=== PATIENT | male | born 1960 | race Caucasian/White ===

== ENCOUNTER 2018-05-16 20:35 | Emergency (ER) | payer SELFPAY ==
[~2018-05-16] VITALS: Ht 172.7 cm; Wt 71.0 kg
[2018-05-16] MEDS ORDERED: DIPHENHYDRAMINE 25MG CAPSULE PO ONE (23:30)
[2018-05-16] MEDS ORDERED: DIPHENHYDRAMINE 25MG CAPSULE PO NR (23:45)
[2018-05-17 00:03] LABS: BASOPHILS % 0.4 % (0.0-2.0); HEMATOCRIT. 39.9 % (42.0-52.0); HEMOGLOBIN. 13.6 g/dL (14.0-18.0); LYMPHOCYTES % 15.1 % (20.0-50.0); MEAN CORPUSCULAR HEMOGLOBIN 30.2 pg (28.0-32.0); MEAN CORPUSCULAR VOLUME 88.3 fL (80.0-94.0); MEAN PLATELET VOLUME 8.9 fl (7.4-10.4); MONOCYTES % 6.3 % (2.0-8.0); NEUTROPHILS % 75.2 % (40.0-76.0); PLATELET 226 x1000/uL (130-400); RED BLOOD CELL COUNT 4.52 mill/uL (4.7-6.1); RED CELL DISTRIBUTION WIDTH 13.5 % (11.6-14.6)
[2018-05-17 00:05] LABS: CHLORIDE 104 mEq/L (98-107)
[2018-05-17 01:58] VITALS: BP 138/82
== END 2018-05-17 02:03 | disposition home or self-care (01) ==
LOC: ER 21:47
DX: R21 Rash and other nonspecific skin eruption (principal); M79.81 Nontraumatic hematoma of soft tissue; I11.9 Hypertensive heart disease without heart failure; F17.210 Nicotine dependence, cigarettes, uncomplicated
CPT/HCPCS: 36415; 73590; 73610; 80053; 85025; 99285; Q0163

== ENCOUNTER 2019-10-31 18:18 | Inpatient (IN) | payer BC ==
[~2019-10-31] VITALS: Ht 172.7 cm; Wt 76.2 kg
[2019-10-31 20:41] LABS: CHLORIDE 103 mEq/L (98-107)
[2019-10-31 20:45] LABS: BASOPHILS % 0.5 % (0.0-2.0); EOSINOPHILS % 4.8 % (0.0-5.0); HEMATOCRIT. 43.9 % (42.0-52.0); HEMOGLOBIN. 15.1 g/dL (14.0-18.0); LYMPHOCYTES % 19.6 % (20.0-50.0); MEAN CORPUSCULAR HEMOGLOBIN 30.8 pg (28.0-32.0); MEAN CORPUSCULAR VOLUME 89.4 fL (80.0-94.0); MEAN PLATELET VOLUME 9.5 fl (7.4-10.4); MONOCYTES % 8.8 % (2.0-8.0); NEUTROPHILS % 66.3 % (40.0-76.0); PLATELET 178 x1000/uL (130-400); RED BLOOD CELL COUNT 4.91 mill/uL (4.7-6.1); RED CELL DISTRIBUTION WIDTH 13.1 % (11.6-14.6)
[2019-11-01] MEDS ORDERED: HYDROCODONE/ACETAMINOPHEN 5/325MG TABLET PO PRN (00:15)
[2019-11-01] MEDS ORDERED: MORPHINE SULFATE 2 MG/ML CPJ (NOT FOR IM USE) IV PRN (00:15)
[2019-11-01] MEDS ORDERED: MAGNESIUM/ALUMINUM HYDROXIDE/SIMETHICONE 30ML UDC PO PRN (00:15)
[2019-11-01] MEDS ORDERED: CLONIDINE 0.1MG TABLET PO PRN (00:15)
[2019-11-01] MEDS ORDERED: ACETAMINOPHEN 325MG TABLET PO PRN (00:15)
[2019-11-01] MEDS ORDERED: ONDANSETRON HCL 4MG/2ML INJ IV PRN (00:15)
[2019-11-01 05:15] VITALS: BP 133/76
[2019-11-01 05:20] VITALS: BP 133/76
[2019-11-01 08:00] VITALS: BP 138/40
[2019-11-01] MEDS: AMLODIPINE 10MG TABLET PO SCH (08:37)
[2019-11-01] MEDS: ENOXAPARIN 40MG/0.4ML SYR SUBCUT SCH (08:39)
[2019-11-01] MEDS ORDERED: NITROGLYCERIN 0.4MG TABLET SL SL PRN (12:30)
[2019-11-01] MEDS: PANTOPRAZOLE SODIUM 40 MG/VIAL IV SCH (14:01)
[2019-11-01 17:32] LABS: *AMPHETAMINES SCREEN URINE NEGATIVE (NEGATIVE); *BARBITURATES SCREEN URINE NEGATIVE (NEGATIVE); *BENZODIAZEPINES SCREEN URINE NEGATIVE (NEGATIVE); *COCAINE SCREEN URINE NEGATIVE (NEGATIVE)
[2019-11-01 17:33] LABS: CANNABINOID URINE SCREEN NEGATIVE (NEGATIVE); OPIATES URINE SCREEN NEGATIVE (NEGATIVE); PHENCYCLIDINE URINE SCREEN NEGATIVE (NEGATIVE)
[2019-11-01 20:00] VITALS: BP 133/64
[2019-11-02] VITALS: BP 117/48
[2019-11-02 04:00] VITALS: BP 125/70
[2019-11-02 08:00] VITALS: BP 146/65
[2019-11-02 08:14] LABS: BASOPHILS % 1.2 % (0.0-2.0); EOSINOPHILS % 6.2 % (0.0-5.0); HEMATOCRIT. 44.9 % (42.0-52.0); HEMOGLOBIN. 15.3 g/dL (14.0-18.0); LYMPHOCYTES % 17.7 % (20.0-50.0); MEAN CORPUSCULAR HEMOGLOBIN 30.6 pg (28.0-32.0); MEAN CORPUSCULAR VOLUME 89.9 fL (80.0-94.0); MEAN PLATELET VOLUME 9.8 fl (7.4-10.4); MONOCYTES % 7.7 % (2.0-8.0); NEUTROPHILS % 67.2 % (40.0-76.0); PLATELET 184 x1000/uL (130-400); RED CELL DISTRIBUTION WIDTH 12.9 % (11.6-14.6)
[2019-11-02 08:18] LABS: CHLORIDE 107 mEq/L (98-107); GAMMA GLUTAMYL TRANSPEPTIDASE 106 IU/L (11-50); HDL CHOLESTEROL 36 mg/dL (40-59); LDL CHOLESTEROL 216 mg/dL (5-100); TOTAL IRON BINDING CAPACITY 367 ug/dL (250-450)
[2019-11-02 08:23] LABS: VITAMIN B12 SERUM 435 pg/mL (211-911)
[2019-11-02] MEDS ORDERED: EZ-HD SUSPENSION(BARIUM SULFATE 340GM) PO ONE (08:26)
[2019-11-02] MEDS ORDERED: SIMETHICONE/SOD BICARB/CIT AC 1 EACH GRAN.EF.PK ONE (08:27)
[2019-11-02] MEDS ORDERED: BARIUM SULFATE 176 GM SUSP.RECON ONE (08:27)
[2019-11-02] MEDS ORDERED: REGADENOSON 0.4 MG/5 ML IV NR (10:00)
[2019-11-02] MEDS: PANTOPRAZOLE SODIUM 40 MG/VIAL IV SCH (10:07)
[2019-11-02] MEDS: AMLODIPINE 10MG TABLET PO SCH (10:07)
[2019-11-02] MEDS: ENOXAPARIN 40MG/0.4ML SYR SUBCUT SCH (10:08)
[2019-11-02 12:00] VITALS: BP 146/80
[2019-11-02] MEDS ORDERED: REGADENOSON 0.4 MG/5 ML IV ONE (12:42)
[2019-11-02 13:29] LABS: HEPATITIS B SURFACE ANTIGEN NEGATIVE
[2019-11-02 13:58] LABS: HEPATITIS A AB IGM NEGATIVE (NEGATIVE)
[2019-11-02] MEDS ORDERED: ASPIRIN 81MG TABLET PO SCH (15:30)
[2019-11-02 16:00] VITALS: BP 130/73
[2019-11-02 16:07] LABS: METHADONE URINE SCREEN NEGATIVE (NEGATIVE)
[2019-11-02 20:00] VITALS: BP 136/76
[2019-11-03] VITALS (7 sets, daily range): BP systolic 121–177; BP diastolic 63–88
[2019-11-03 06:52] LABS: CHLORIDE 104 mEq/L (98-107)
[2019-11-03 06:55] LABS: BASOPHILS % 0.8 % (0.0-2.0); EOSINOPHILS % 6.5 % (0.0-5.0); HEMATOCRIT. 42.8 % (42.0-52.0); LYMPHOCYTES % 20.4 % (20.0-50.0); MEAN CORPUSCULAR HEMOGLOBIN 31.2 pg (28.0-32.0); MEAN CORPUSCULAR VOLUME 89.1 fL (80.0-94.0); MEAN PLATELET VOLUME 9.7 fl (7.4-10.4); MONOCYTES % 8.9 % (2.0-8.0); NEUTROPHILS % 63.4 % (40.0-76.0); PLATELET 187 x1000/uL (130-400); RED BLOOD CELL COUNT 4.81 mill/uL (4.7-6.1); RED CELL DISTRIBUTION WIDTH 12.7 % (11.6-14.6)
[2019-11-03] MEDS: PANTOPRAZOLE SODIUM 40 MG/VIAL IV SCH (08:39)
[2019-11-03] MEDS ORDERED: PHENYLEPHRINE 100MCG/ML 10ML VIAL (CATH LAB) IV ONE (11:13)
[2019-11-03] MEDS ORDERED: NICARDIPINE 100MCG/ML 10ML VIAL (CATH LAB) IV ONE (11:13)
[2019-11-03] MEDS ORDERED: NITROGLYCERIN 50MCG/ML 10ML VIAL (CATH LAB) IV ONE (11:13)
[2019-11-03] MEDS ORDERED: FENTANYL CITRATE/PF 50MCG/ML 2ML VIAL ONE (14:53)
[2019-11-03] MEDS ORDERED: LIDOCAINE HCL 1% 20ML VIAL (Pyxis) INJ ONE (14:53)
[2019-11-03] MEDS ORDERED: IODIXANOL 320MG/ML 100 ML BOTTLE IV ONE (14:53)
[2019-11-03] MEDS ORDERED: MIDAZOLAM HCL 2 MG/2 ML VIAL ONE (14:54)
[2019-11-03] MEDS ORDERED: ASPIRIN/SOD BICARB/CITRIC ACID 324MG TAB EFF ONE (14:56)
[2019-11-03] MEDS ORDERED: NITROGLYCERIN 0.4MG TABLET SL SL ONE (15:11)
[2019-11-03] MEDS ORDERED: NITROGLYCERIN OINT 1GM/INCH UDPKT TD ONE (15:13)
[2019-11-03] MEDS ORDERED: IOHEXOL-300 100 ML BOTTLE ONE (15:34)
[2019-11-03] MEDS ORDERED: IODIXANOL 320MG/ML 200ML BOTTLE ONE (15:52)
[2019-11-03] MEDS ORDERED: CLOPIDOGREL 75MG TABLET ONE (15:55)
[2019-11-03] MEDS ORDERED: ONDANSETRON HCL 4MG/2ML INJ IV PRN (16:15)
[2019-11-03] MEDS ORDERED: MORPHINE SULFATE 2 MG/ML CPJ (NOT FOR IM USE) IV PRN ×2 (16:15)
[2019-11-03] MEDS ORDERED: ATROPINE SULFATE 1MG/10ML SYR IV PRN (16:15)
[2019-11-03] MEDS ORDERED: CLOPIDOGREL 75MG TABLET PO ONE (16:15)
[2019-11-03] MEDS ORDERED: SODIUM CHLORIDE 0.45% 1,000 ML IV ONE (16:15)
[2019-11-03] MEDS ORDERED: ACETAMINOPHEN 325MG TABLET PO PRN (16:15)
[2019-11-03] MEDS: AMLODIPINE 2.5MG TABLET PO SCH (20:12)
[2019-11-03] MEDS ORDERED: ATORVASTATIN CALCIUM 40MG TABLET PO SCH (21:00)
[2019-11-04] VITALS (10 sets, daily range): BP systolic 108–147; BP diastolic 58–76
[2019-11-04 07:08] LABS: BASOPHILS % 1.1 % (0.0-2.0); EOSINOPHILS % 5.5 % (0.0-5.0); HEMATOCRIT. 41.3 % (42.0-52.0); HEMOGLOBIN. 14.4 g/dL (14.0-18.0); LYMPHOCYTES % 18.8 % (20.0-50.0); MEAN CORPUSCULAR HEMOGLOBIN 31.1 pg (28.0-32.0); MEAN CORPUSCULAR VOLUME 88.8 fL (80.0-94.0); MEAN PLATELET VOLUME 9.5 fl (7.4-10.4); MONOCYTES % 8.7 % (2.0-8.0); NEUTROPHILS % 65.9 % (40.0-76.0); PLATELET 187 x1000/uL (130-400); RED BLOOD CELL COUNT 4.65 mill/uL (4.7-6.1); RED CELL DISTRIBUTION WIDTH 12.9 % (11.6-14.6)
[2019-11-04 07:19] LABS: CHLORIDE 105 mEq/L (98-107)
[2019-11-04] MEDS ORDERED: ASPIRIN 325MG TABLET PO SCH (09:00)
[2019-11-04] MEDS ORDERED: CLOPIDOGREL 75MG TABLET PO SCH (09:00)
[2019-11-04] MEDS: ENOXAPARIN 40MG/0.4ML SYR SUBCUT SCH ×2 (09:00→10:48)
[2019-11-04] MEDS ORDERED: FAMOTIDINE 20MG/2ML VIAL IV SCH (09:00)
[2019-11-04] MEDS: AMLODIPINE 2.5MG TABLET PO SCH (10:49)
== END 2019-11-04 17:35 | disposition home or self-care (01) | DRG 247 ==
LOC: ER 18:18 → 7WST 22:44 → EDBEDREQ 22:52 → EDBEDREQTM 22:52 → ENRESERV 11-01 03:48 → 3WST 11-03 16:36
PROVIDERS: ADMIT Hospitalist; ATTEND Hospitalist
PROC: 4A023N7 Measurement of Cardiac Sampling and Pressure, Left Heart, Percutaneous Approach (ICD-10-PCS; principal; 2019-11-02)
PROC: 027034Z Dilation of Coronary Artery, One Artery with Drug-eluting Intraluminal Device, Percutaneous Approach (ICD-10-PCS; 2019-11-02)
PROC: B2151ZZ Fluoroscopy of Left Heart using Low Osmolar Contrast (ICD-10-PCS; 2019-11-02)
PROC: B2111ZZ Fluoroscopy of Multiple Coronary Arteries using Low Osmolar Contrast (ICD-10-PCS; 2019-11-02)
DX: I21.19 ST elevation (STEMI) myocardial infarction involving other coronary artery of inferior wall (principal); I25.10 Atherosclerotic heart disease of native coronary artery without angina pectoris; F10.10 Alcohol abuse, uncomplicated; F17.210 Nicotine dependence, cigarettes, uncomplicated; I10 Essential (primary) hypertension; R13.10 Dysphagia, unspecified; D64.9 Anemia, unspecified; I35.0 Nonrheumatic aortic (valve) stenosis; R00.1 Bradycardia, unspecified; R74.0 Nonspecific elevation of levels of transaminase and lactic acid dehydrogenase [LDH]; K76.0 Fatty (change of) liver, not elsewhere classified; E87.6 Hypokalemia; E78.5 Hyperlipidemia, unspecified; Z87.19 Personal history of other diseases of the digestive system; Z79.02 Long term (current) use of antithrombotics/antiplatelets
CPT/HCPCS: 36415; 71045; 74220; 76700; 78452; 80048; 80053; 80061; 80076; 80305; 82248; 82607; 82977; 83540; 83550; 83735; 83880; 84443; 84484; 85025; 85347; 86705; 86709; 86803; 87340; 92610; 92928; 93005; 93017; 93306; 93458; 93970; 99285; A9500; C1725; C1769; C1874; C1887; C1893; C9113; J1644; J1650; J2250; J2370; J2785; J3010; J3490; J7517; Q9967

== ENCOUNTER 2019-12-23 13:09 | Emergency (ER) | payer BC ==
[~2019-12-23] VITALS: Ht 172.7 cm; Wt 76.0 kg
[2019-12-23 16:11] LABS: CHLORIDE 107 mEq/L (98-107)
[2019-12-23 17:35] LABS: BASOPHILS % 1.3 % (0.0-2.0); EOSINOPHILS % 4.5 % (0.0-5.0); HEMATOCRIT. 41.4 % (42.0-52.0); HEMOGLOBIN. 14.5 g/dL (14.0-18.0); LYMPHOCYTES % 17.8 % (20.0-50.0); MEAN CORPUSCULAR HEMOGLOBIN 30.1 pg (28.0-32.0); MEAN CORPUSCULAR VOLUME 85.9 fL (80.0-94.0); MEAN PLATELET VOLUME 9.4 fl (7.4-10.4); MONOCYTES % 7.6 % (2.0-8.0); NEUTROPHILS % 68.8 % (40.0-76.0); PLATELET 246 x1000/uL (130-400); RED BLOOD CELL COUNT 4.82 mill/uL (4.7-6.1); RED CELL DISTRIBUTION WIDTH 12.3 % (11.6-14.6)
[2019-12-23 17:47] VITALS: BP 140/70
== END 2019-12-23 18:19 | disposition home or self-care (01) ==
LOC: ER 13:09
DX: R00.2 Palpitations (principal); R07.89 Other chest pain; D64.9 Anemia, unspecified; I10 Essential (primary) hypertension; Z98.890 Other specified postprocedural states
CPT/HCPCS: 36415; 71045; 80053; 84484; 85025; 93005; 99285

== ENCOUNTER 2020-08-25 12:08 | Emergency (ER) | payer BC ==
[~2020-08-25] VITALS: Ht 172.7 cm; Wt 74.8 kg
[2020-08-25 14:43] LABS: BASOPHILS % 0.8 % (0.0-2.0); EOSINOPHILS % 2.1 % (0.0-5.0); HEMATOCRIT. 43.6 % (42.0-52.0); HEMOGLOBIN. 14.7 g/dL (14.0-18.0); LYMPHOCYTES % 12.3 % (20.0-50.0); MEAN CORPUSCULAR HEMOGLOBIN 28.8 pg (28.0-32.0); MEAN CORPUSCULAR VOLUME 85.6 fL (80.0-94.0); MONOCYTES % 5.8 % (2.0-8.0); PLATELET 284 x1000/uL (130-400); RED BLOOD CELL COUNT 5.09 mill/uL (4.7-6.1); RED CELL DISTRIBUTION WIDTH 12.7 % (11.6-14.6)
[2020-08-25 14:47] LABS: CHLORIDE 101 mEq/L (98-107)
[2020-08-25 14:51] LABS: D-DIMER 0.47 mg/L FEU (<0.50); PROTHROMBIN TIME 10.8 sec (9.6-11.0)
[2020-08-25 14:54] LABS: C REACTIVE PROTEIN QUANT 0.5 mg/L (0.0-3.0)
[2020-08-25 14:56] LABS: CREATINE KINASE 91 IU/L (39-308)
[2020-08-25 16:34] VITALS: BP 130/78
== END 2020-08-25 16:34 | disposition home or self-care (01) ==
LOC: ER 12:08
DX: U07.1 COVID-19 (principal); I11.9 Hypertensive heart disease without heart failure; E78.00 Pure hypercholesterolemia, unspecified; I25.2 Old myocardial infarction; Z98.61 Coronary angioplasty status
CPT/HCPCS: 36415; 71045; 80053; 82550; 82728; 83615; 83880; 84145; 84484; 85025; 85379; 85384; 86140; 87635; 93005; 99285